=== PATIENT | female | born 1970 | race Caucasian/White ===

== ENCOUNTER → 2016-07-16 | Outpatient (CLI) | payer OTHER ==
[~2016-07-16] MED LIST: BYDUREON2 MG SQ; DICLOFENAC SODI75 MG PO; FLEXERIL 10 MG10 MG PO; HUMULIN 70100 UNIT/1 SQ; HYDROCHLOROTHIA25 MG PO; LANTUS100 UNIT/1 SQ; LISINOPRIL20 MG PO; LOPRESSOR 25 MG25 MG PO; LORTAB 5-325 M1 EACH PO; LOVENOX SY40 MG/0.4 SQ; NEURONTIN 400400 MG PO; PERCOCET 5-3251 EACH PO; SIMVASTATIN40 MG PO; VALIUM 2 MG TAB2 MG PO; VITAMIN D350000 UNIT PO
== END ==
LOC: KOH-I 14:00
DX: M76.51 Patellar tendinitis, right knee (principal); Z98.890 Other specified postprocedural states; M25.461 Effusion, right knee; M85.861 Other specified disorders of bone density and structure, right lower leg
CPT/HCPCS: 73700

== ENCOUNTER → 2016-08-19 | Outpatient (CLI) | payer OTHER ==
[2016-08-19 10:30] LABS: HEMOGLOBIN 12.9 gm/dl (12.3-15.3); RED BLOOD COUNT 4.6 M/UL (4.00-5.10); WHITE BLOOD COUNT 8.2 K/UL (4.5-11.0)
[2016-08-19 10:41] LABS: BUN/CREATININE RATIO 30 (0-10)
== END ==
LOC: OPSV2 09:30
PROVIDERS: Orthopaedic Surgery
DX: Z01.812 Encounter for preprocedural laboratory examination (principal); Z01.810 Encounter for preprocedural cardiovascular examination; T84.84XA Pain due to internal orthopedic prosthetic devices, implants and grafts, initial encounter; I10 Essential (primary) hypertension; E11.9 Type 2 diabetes mellitus without complications; Z88.0 Allergy status to penicillin; Z88.6 Allergy status to analgesic agent; Z88.8 Allergy status to other drugs, medicaments and biological substances
CPT/HCPCS: 36415; 80048; 83036; 85027; 93005

== ENCOUNTER → 2016-08-23 | Day surgery (SDC) | payer OTHER ==
[~2016-08-23] VITALS: Ht 146.1 cm; Wt 104.3 kg
== END | disposition home or self-care (01) ==
LOC: OR 08:15
PROVIDERS: Orthopaedic Surgery
PROC: 0SPC04Z Removal of Internal Fixation Device from Right Knee Joint, Open Approach (ICD-10-PCS; principal; 2016-08-23 10:15)
DX: T84.84XA Pain due to internal orthopedic prosthetic devices, implants and grafts, initial encounter (principal); S82.001D Unspecified fracture of right patella, subsequent encounter for closed fracture with routine healing; I10 Essential (primary) hypertension; K21.9 Gastro-esophageal reflux disease without esophagitis; J45.909 Unspecified asthma, uncomplicated; E78.5 Hyperlipidemia, unspecified; E11.9 Type 2 diabetes mellitus without complications; Z90.49 Acquired absence of other specified parts of digestive tract; Z79.4 Long term (current) use of insulin; Z79.891 Long term (current) use of opiate analgesic; Z79.899 Other long term (current) drug therapy; Z88.0 Allergy status to penicillin; Z88.8 Allergy status to other drugs, medicaments and biological substances; X58.XXXD Exposure to other specified factors, subsequent encounter
CPT/HCPCS: 73560; 76000; 82962; J2250; J3010; J3370; J7030; J7050; J7120